=== PATIENT | female | born 1980 | race Caucasian/White ===

== ENCOUNTER 2019-07-25 18:27 | Inpatient (IN) | payer OTHER, MEDICAID ==
[~2019-07-25] VITALS: Ht 165.1 cm; Wt 75.3 kg
[2019-07-25] MEDS ORDERED: SODIUM CHLORIDE 0.9% 1,000 ML IV ONE ×2 (18:49→20:32)
[2019-07-25 19:43] LABS: BASOPHILS % 0.7 % (0.0-2.0); EOSINOPHILS % 2.2 % (0.0-5.0); HEMATOCRIT. 30.8 % (36.0-48.0); HEMOGLOBIN. 9.8 g/dL (12.0-16.0); LYMPHOCYTES % 13.1 % (20.0-50.0); MEAN CORPUSCULAR HEMOGLOBIN 22.8 pg (28.0-32.0); MEAN CORPUSCULAR VOLUME 71.9 fL (81.0-99.0); MEAN PLATELET VOLUME 8.4 fl (7.4-10.4); MONOCYTES % 8.3 % (2.0-8.0); NEUTROPHILS % 75.7 % (40.0-76.0); PLATELET 231 x1000/uL (130-400); RED BLOOD CELL COUNT 4.28 mill/uL (4.2-5.4); RED CELL DISTRIBUTION WIDTH 18.5 % (11.6-14.6)
[2019-07-25 19:53] LABS: CHLORIDE 107 mEq/L (98-107)
[2019-07-25 19:54] LABS: HCG SCREEN NEGATIVE
[2019-07-25] MEDS ORDERED: ASPIRIN 325MG EC TABLET PO ONE (20:30)
[2019-07-25] MEDS ORDERED: ACETAMINOPHEN 325MG TABLET PO PRN (21:45)
[2019-07-25] MEDS ORDERED: ENOXAPARIN 60MG/0.6ML SYR SUBCUT ONE (22:00)
[2019-07-25 23:50] LABS: PROTHROMBIN TIME 10.8 sec (9.6-11.0)
[2019-07-25] MEDS: ONDANSETRON HCL 4MG/2ML INJ IV PRN (23:54)
[2019-07-26] VITALS (42 sets, daily range): BP systolic 13–122; BP diastolic 1–71
[2019-07-26] MEDS: HYDROCODONE/ACETAMINOPHEN 5/325MG TABLET PO PRN ×3 (04:39→22:18)
[2019-07-26 05:02] LABS: BASOPHILS % 0.5 % (0.0-2.0); EOSINOPHILS % 1.7 % (0.0-5.0); HEMATOCRIT. 27.9 % (36.0-48.0); HEMOGLOBIN. 8.8 g/dL (12.0-16.0); LYMPHOCYTES % 17.6 % (20.0-50.0); MEAN CORPUSCULAR HEMOGLOBIN 22.6 pg (28.0-32.0); MEAN CORPUSCULAR VOLUME 71.5 fL (81.0-99.0); MEAN PLATELET VOLUME 8.4 fl (7.4-10.4); NEUTROPHILS % 74.2 % (40.0-76.0); PLATELET 208 x1000/uL (130-400); RED CELL DISTRIBUTION WIDTH 18.4 % (11.6-14.6)
[2019-07-26 05:03] LABS: CHLORIDE 108 mEq/L (98-107)
[2019-07-26 05:12] LABS: LDL CHOLESTEROL 34 mg/dL (5-100)
[2019-07-26 05:14] LABS: HDL CHOLESTEROL 45 mg/dL (40-59)
[2019-07-26] MEDS ORDERED: NITROGLYCERIN OINT 1GM/INCH UDPKT TD SCH (06:00)
[2019-07-26] MEDS: SODIUM CHLORIDE 0.9% 1,000 ML IV SCH ×2 (08:25→18:52)
[2019-07-26] MEDS: ENOXAPARIN 60MG/0.6ML SYR SUBCUT SCH ×2 (08:28→21:21)
[2019-07-26] MEDS: ASPIRIN 81MG TABLET PO SCH (08:28)
[2019-07-26] MEDS ORDERED: ASPIRIN 325MG EC TABLET PO SCH (09:00)
[2019-07-26] MEDS ORDERED: METOPROLOL TARTRATE 25MG TABLET PO SCH (09:00)
[2019-07-26] MEDS ORDERED: ENOXAPARIN 30MG/0.3ML SYR SUBCUT SCH (09:00)
[2019-07-26] MEDS ORDERED: ENOXAPARIN 40MG/0.4ML SYR SUBCUT SCH (09:00)
[2019-07-26] MEDS ORDERED: SODIUM CHLORIDE 0.9% 1,000 ML IV NR (10:00)
[2019-07-26 11:14] LABS: CHLORIDE 107 mEq/L (98-107)
[2019-07-26] MEDS: PIPERACILLIN/TAZOBACTAM 3.375 G in DEXT 5% WATER 100 ML IV SCH ×3 (11:15→23:39)
[2019-07-26 11:21] LABS: CREATINE KINASE 259 IU/L (26-192)
[2019-07-26 11:25] LABS: CREATINE KINASE MB FRACTION 23.1 ng/mL (0.5-3.6)
[2019-07-26 11:45] LABS: HEMATOCRIT 26.3 % (36.0-48.0); HEMOGLOBIN 8.1 g/dL (12.0-16.0)
[2019-07-26] MEDS ORDERED: ALBUMIN HUMAN 12.5G/250ML (5%) IV PRN (11:45)
[2019-07-26] MEDS ORDERED: POTASSIUM CHLORIDE 20MEQ TABLET SR PO NR (11:45)
[2019-07-26] MEDS ORDERED: VANCOMYCIN 1500MG in DEXTROSE 5% WATER 250ML IV SCH (12:00)
[2019-07-26 12:10] LABS: CLARITY URINE CLEAR (CLEAR); COLOR URINE YELLOW (YELLOW); KETONES URINE NEGATIVE (NEGATIVE); LEUKOCYTE ESTERASE URINE NEGATIVE (NEGATIVE); NITRITE URINE NEGATIVE (NEGATIVE); OCCULT BLOOD URINE NEGATIVE (NEGATIVE); PH URINE 5.5 (4.5-8.0); PROTEIN URINE TRACE (NEGATIVE); SPECIFIC GRAVITY URINE 1.029 (1.005-1.030)
[2019-07-26] MEDS ORDERED: DOPAMINE HCL 400 MG in DEXT 5% WATER 250 ML IV PRN (13:30)
[2019-07-26] MEDS ORDERED: ALBUMIN HUMAN 25GM/500ML (5%) IV ONE (13:45)
[2019-07-26] MEDS: DOPAMINE HCL 400 MG in DEXT 5% WATER 240 ML IV PRN (14:45)
[2019-07-26] MEDS ORDERED: SODIUM CHLORIDE 0.9% 1,000 ML IV ONE (15:00)
[2019-07-26] MEDS: FERROUS SULFATE 325MG TABLET PO SCH ×2 (15:36→18:51)
[2019-07-26] MEDS: DOCUSATE SODIUM 250MG CAPSULE PO SCH (15:36)
[2019-07-26] MEDS: VANCOMYCIN 1 G PREMIX 200 ML IV SCH (22:01)
[2019-07-27] VITALS (89 sets, daily range): BP systolic 13–128; BP diastolic 1–95
[2019-07-27] MEDS: ONDANSETRON HCL 4MG/2ML INJ IV PRN ×3 (00:03→15:13)
[2019-07-27] MEDS: SODIUM CHLORIDE 0.9% 1,000 ML IV SCH ×2 (02:50→16:04)
[2019-07-27] MEDS: PIPERACILLIN/TAZOBACTAM 3.375 G in DEXT 5% WATER 100 ML IV SCH ×3 (05:00→17:51)
[2019-07-27] MEDS: VANCOMYCIN 1 G PREMIX 200 ML IV SCH ×3 (05:00→21:17)
[2019-07-27 05:56] LABS: CHLORIDE 108 mEq/L (98-107)
[2019-07-27 05:58] LABS: BASOPHILS % 0.7 % (0.0-2.0); EOSINOPHILS % 2.1 % (0.0-5.0); HEMATOCRIT. 25.4 % (36.0-48.0); HEMOGLOBIN. 7.9 g/dL (12.0-16.0); LYMPHOCYTES % 25.8 % (20.0-50.0); MEAN CORPUSCULAR HEMOGLOBIN 22.8 pg (28.0-32.0); MEAN CORPUSCULAR VOLUME 73.3 fL (81.0-99.0); MEAN PLATELET VOLUME 8.7 fl (7.4-10.4); MONOCYTES % 6.5 % (2.0-8.0); NEUTROPHILS % 64.9 % (40.0-76.0); PLATELET 191 x1000/uL (130-400); RED BLOOD CELL COUNT 3.46 mill/uL (4.2-5.4); RED CELL DISTRIBUTION WIDTH 18.9 % (11.6-14.6)
[2019-07-27] MEDS: FERROUS SULFATE 325MG TABLET PO SCH ×3 (07:49→17:51)
[2019-07-27] MEDS: HYDROCODONE/ACETAMINOPHEN 5/325MG TABLET PO PRN ×2 (07:50→21:49)
[2019-07-27] MEDS: DOPAMINE HCL 400 MG in DEXT 5% WATER 240 ML IV PRN (07:51)
[2019-07-27] MEDS ORDERED: IOHEXOL-350 100 ML BOTTLE ONE (09:59)
[2019-07-27] MEDS: DOCUSATE SODIUM 250MG CAPSULE PO SCH (10:05)
[2019-07-27] MEDS: ASPIRIN 81MG TABLET PO SCH (10:06)
[2019-07-27] MEDS: ENOXAPARIN 60MG/0.6ML SYR SUBCUT SCH ×2 (10:08→20:26)
[2019-07-27] MEDS ORDERED: POTASSIUM CHLORIDE 20MEQ TABLET SR PO NR (10:45)
[2019-07-27] MEDS ORDERED: DOPAMINE 400MG/250ML PREMIX 250 ML IV PRN (12:30)
[2019-07-27] MEDS ORDERED: DOPAMINE HCL 400 MG in DEXT 5% WATER 250 ML IV PRN (13:00)
[2019-07-27 15:54] LABS: *AMPHETAMINES SCREEN URINE NEGATIVE (NEGATIVE)
[2019-07-27 15:55] LABS: *BARBITURATES SCREEN URINE NEGATIVE (NEGATIVE); *BENZODIAZEPINES SCREEN URINE NEGATIVE (NEGATIVE); *COCAINE SCREEN URINE NEGATIVE (NEGATIVE); METHADONE URINE SCREEN NEGATIVE (NEGATIVE); PHENCYCLIDINE URINE SCREEN NEGATIVE (NEGATIVE)
[2019-07-27 15:56] LABS: CANNABINOID URINE SCREEN NEGATIVE (NEGATIVE)
[2019-07-27 16:07] LABS: OPIATES URINE SCREEN PRESUMTIVE POSITIVE (NEGATIVE)
== END 2019-07-27 22:00 | disposition short-term general hospital (02) | DRG 871 ==
LOC: ER 18:27 → EDBEDREQTM 20:47 → EDBEDREQ 20:47 → MICUSO 21:18 → 7WST 07-26 00:56 → MICUNO 07-26 14:09
PROVIDERS: ADMIT Internal Medicine; ATTEND Internal Medicine
DX: A41.9 Sepsis, unspecified organism (principal); I21.4 Non-ST elevation (NSTEMI) myocardial infarction; R65.21 Severe sepsis with septic shock; J96.00 Acute respiratory failure, unspecified whether with hypoxia or hypercapnia; R57.0 Cardiogenic shock; J81.1 Chronic pulmonary edema; E44.1 Mild protein-calorie malnutrition; D64.9 Anemia, unspecified; G90.8 Other disorders of autonomic nervous system; I10 Essential (primary) hypertension; Z20.828 Contact with and (suspected) exposure to other viral communicable diseases; Z82.3 Family history of stroke; Z82.49 Family history of ischemic heart disease and other diseases of the circulatory system; Z90.49 Acquired absence of other specified parts of digestive tract; Z68.27 Body mass index [BMI] 27.0-27.9, adult
CPT/HCPCS: 36415; 71045; 71275; 80048; 80053; 80061; 80202; 80305; 81003; 82550; 82553; 82728; 82962; 83036; 83540; 83550; 83605; 83735; 83880; 84443; 84484; 84703; 85014; 85018; 85025; 86850; 86900; 93005; 93306; 96372; 99285; J1265; J1650; J2405; J2543; J3370; J7030; J7060; P9041; Q9967; U0003-CS

== ENCOUNTER 2025-02-26 12:53 | Emergency (ER) | payer MEDICAID ==
[~2025-02-26] VITALS: Ht 154.9 cm; Wt 81.0 kg
[2025-02-26 12:59] VITALS: O2SAT 97
[2025-02-26 16:53] LABS: CLARITY URINE CLEAR (CLEAR); COLOR URINE YELLOW (YELLOW); GLUCOSE URINE 3+ (NEGATIVE); KETONES URINE TRACE (NEGATIVE); LEUKOCYTE ESTERASE URINE 1+ (NEGATIVE); NITRITE URINE NEGATIVE (NEGATIVE); OCCULT BLOOD URINE 3+ (NEGATIVE); PH URINE 7.0 (4.5-8.0); PROTEIN URINE NEGATIVE (NEGATIVE); SPECIFIC GRAVITY URINE 1.034 (1.005-1.030); UROBILINOGEN URINE 0.2 E.U./dL (0.2-1.0)
[2025-02-26 16:58] LABS: HCG SCREEN NEGATIVE
[2025-02-26 17:33] LABS: WBC URINE TNTC /hpf (0-2)
[2025-02-26 17:34] LABS: BACTERIA URINE 1+; SQUAMOUS EPITHELIAL CELL URINE 1+ /lpf (RARE/1+)
[2025-02-26] MEDS ORDERED: CEPH500T MT (17:42)
[2025-02-26 17:55] VITALS: BP 135/61; PULSE 88; RESP 15; TEMP 37; O2SAT 99
== END 2025-02-26 17:56 | disposition home or self-care (01) ==
LOC: ER 12:53
DX: N39.0 Urinary tract infection, site not specified (principal); R10.20 Pelvic and perineal pain unspecified side
CPT/HCPCS: 81003; 81025; 84703; 99284